=== PATIENT | female | born 1965 ===

== ENCOUNTER → 2017-10-10 | Outpatient (CLI) | payer OTHER | END | disposition home or self-care (01) | LOC: PPHC 10:26 | DX: H10.13 Acute atopic conjunctivitis, bilateral (principal) ==

== ENCOUNTER 2018-03-05 14:27 | Outpatient (CLI) | payer OTHER | END 2018-03-05 14:37 | disposition home or self-care (01) | LOC: MAMO-SONO 14:27 | DX: Z12.31 Encounter for screening mammogram for malignant neoplasm of breast (principal); N83.291 Other ovarian cyst, right side; N83.292 Other ovarian cyst, left side; N60.11 Diffuse cystic mastopathy of right breast; N60.12 Diffuse cystic mastopathy of left breast; D24.1 Benign neoplasm of right breast; D24.2 Benign neoplasm of left breast ==

== ENCOUNTER 2020-12-31 13:35 | Outpatient (CLI) | payer OTHER | END 2020-12-31 13:37 | disposition home or self-care (01) | LOC: NUCLEAR 13:35 | PROVIDERS: ATTEND Internal Medicine | DX: M85.80 Other specified disorders of bone density and structure, unspecified site (principal); M81.0 Age-related osteoporosis without current pathological fracture ==